=== PATIENT | male | born 1975 | race African-American/Black ===

== ENCOUNTER 2019-02-16 00:18 | Emergency (ER) | payer OTHER ==
[2019-02-16 00:28] VITALS: BMI 27.4
[2019-02-16] MEDS ORDERED: LORazepam 2 MG/ML SDV VIAL ONE (00:40)
--- NOTE | 2019-02-16 00:46 | PDOC ---
History of Present Illness - General Chief Complaint: Seizure Stated Complaint: SEIZURE Time Seen by Provider: 02/16/19 00:36 History Source: Patient - History of Present Illness Initial Comments: 02/16/19 00:52 HPI obtained from [facility] paperwork as well as staff @ [facility] (patient post- ictal @ presentation) The patient is a 43 year old male with a PMH of Seizure disorder, IDDM, HTN, Schizoaffective disorder who presents to our ED s/p seizure. As per [facility] staff, patient was found face down on the ground @ 10:15 p.m. shaking his upper and lower extremities. Witnessed portion of seizure lasted 3-4 minutes Patient alert but not responsive, non-verbal. At baseline, patient A&O x3 however noted to be reticent 2/2 to his underlying schizoaffective disorder. As per [facility] staff, prior to yesterday, patient's last seizure in September 2018. NKDA As per EMR, patient has no previous evaluations in our ED. Patient evaluated for abnormal LFT's as outpatient in 2017. Past History - Past Medical History Allergies/Adverse Reactions: Allergies Allergy/AdvReac Type Severity Reaction Status Date / Time No Known Allergies Allergy Verified 02/16/19 00:22 Home Medications: Ambulatory Orders Acetaminophen [Tylenol] 650 mg PO QID PRN 02/16/19 Amlodipine Besylate [Norvasc -] 10 mg PO DAILY 02/16/19 Dextran 70/Hypromellose [Artificial Tears Eye Drops] 1 drop OP BID 02/16/19 Divalproex Sodium [Depakote] 500 mg PO BID 02/16/19 Enalapril Maleate [Vasotec -] 10 mg PO BID 02/16/19 Ferrous Sulfate [Feosol] 324 mg PO DAILY 02/16/19 Glimepiride [Amaryl -] 4 mg PO DAILY@0700 02/16/19 Insulin (Novolog) [Novolog] 0 units SQ BID 02/16/19 Insulin Detemir [Levemir Flextouch] 10 unit SQ HS 02/16/19 Levetiracetam 750 mg PO Q12H 02/16/19 Metformin HCl [Glucophage] 1,000 mg PO BID 02/16/19 Omeprazole 20 mg PO DAILY 02/16/19 COPD: No Diabetes: Yes Psychiatric Problems: Yes (SCHIZO) Seizures: Yes - Suicide/Smoking/Psychosocial Hx Smoking History: Never smoked Review of Systems - Review of Systems Able to Perform ROS?: No (post ictal) *Physical Exam - Vital Signs Last Vital Signs Temp Pulse Resp BP Pulse Ox 98.5 F 91 H 16 124/74 99 02/16/19 00:23 02/16/19 00:23 02/16/19 00:23 02/16/19 00:02/16/19 00:23 - Physical Exam General Appearance: Yes: Nourished, Appropriately Dressed HEENT: positive: Normal Voice, Hearing Grossly Normal Neck: positive: Trachea midline, Supple Respiratory/Chest: positive: Lungs Clear, Normal Breath Sounds Cardiovascular: positive: S1, S2 Vascular Pulses: Dorsalis-Pedis (R): 2+, Doralis-Pedis (L): 2+ Gastrointestinal/Abdominal: positive: Normal Bowel Sounds, Soft Extremity: positive: Normal Capillary Refill, Normal Inspection Integumentary: positive: Normal Color, Dry, Warm Neurologic: positive: Alert, Other (L index finger tremor - extinguishes w/ command; ). negative: Responsive, Sensory Deficit, Confused ED Treatment Course - LABORATORY CBC & Chemistry Diagram: 02/16/19 01:40 02/16/19 01:40 Medical Decision Making - Medical Decision Making 02/16/19 01:03 43 year old male w/history of previously well controlled seizure disorder presents s/p partially witnessed seizure at his assisted living facility. Post ictal @ presentation, with subsequent seizure (L upper extremity jerking, eyes rolled back in head) s/p 2 mg Ativan As patient post-ictal then seizure in our ED, will evaluate for status epilepticus planned admission. PLAN: Head CT, Valproic Acid, Keppra levels, basic labs, Tylenol for pain control 02/16/19 01:45 Patient signed out to Dr. Edmonds (Resident) and Dr. Wallis (Attending) Labs, Head CT pending Likely disposition is admission for status epilepticus *DC/Admit/Observation/Transfer Diagnosis at time of Disposition: Hyponatremia, Seizure - Discharge Dispostion Disposition: TRANSFER ACUTE CARE/OTHER HOSP - Referrals Referrals: Patrick Edmonds MD [Primary Care Provider] - - Patient Instructions - Post Discharge Activity
[2019-02-16] MEDS ORDERED: ACETAMINOPHEN 1000 MG/100 ML VIAL (NON FORMULARY) IVPB ONE (01:06)
[2019-02-16] MEDS ORDERED: ACETAMINOPHEN INJECTION 100 ML IVPB ONE (01:21)
--- NOTE | 2019-02-16 01:51 | PDOC ---
Documentation entered by Yuki Elizabeth SCRIBE, acting as scribe for Amos Gaxiola MD. Amos Gaxiola MD: This documentation has been prepared by the janieibGlenn smith Collisia, SCRIBE, under my direction and personally reviewed by me in its entirety. I confirm that the documentation accurately reflects all work, treatment, procedures, and medical decision making performed by me. Attending Attestation - Resident Resident Name: ChepeAnabella - ED Attending Attestation I have performed the following: I have examined & evaluated the patient, The case was reviewed & discussed with the resident, I agree w/resident's findings & plan, Exceptions are as noted - HPI HPI: 02/16/19 01:26 The patient is a 43 year old male with a significant past medical history of seizure disorder (on Keppra) and diabetes who presents to the emergency department via EMS from [facility] s/p a seizure episode earlier this evening. As per [facility], the patient was found on the floor in his room seizing at about 10:15 pm by which he was seizing for about 3-4 minute. At bedside, patient has some left upper extremity shaking. History is limited secondary to patients clinical status. - Physicial Exam PE: 02/16/19 01:26 Vitals: Triage vital signs reviewed General Appearance: No acute distress, well nourished, well developed Head: Atraumatic Eyes: Pupils equal reactive round, extraocular movement intact Throat: Posterior oropharynx without erythema, mucous membranes moist Neck: Supple; No nuchal rigidity Chest Wall: Nontender Cardiac: Regular rate and rhythm, no murmurs, no rubs, no gallops Lungs: Clear to auscultation bilateral, good air movement bilaterally Abdomen: Soft, nondistended, normal bowel sounds, nontender to palpation Extremities: Full range of motion to all extremities. no cyanosis, clubbing, or edema Skin: Warm and dry, no rashes or lesions, no rash, no petechiae Neuro: (+)left hand tremor that extinguishes with attempt. Cranial Nerves 2-12 grossly intact, Strength intact to all extremities, Sensation intact to all extremities, - Medical Decision Making 02/16/19 01:26 The patient is a 43 year old male with a significant past medical history of seizure disorder (on Keppra) and diabetes who presents to the emergency department via EMS from [facility] s/p a seizure episode earlier this evening. The patient will get labs drawn, head CT, EKG and medication for further evaluation. Patient presents to the emergency department status post seizure questionable second partial seizure here in the emergency department without complete resolution of symptoms Ativan given now with very mild shaking to left hand which stops with intention Given possibility of multiple [id number] seizures we'll admit the hospital for further evaluation labs CAT scan pending Dr. Wallis follow up results and admit
[2019-02-16 01:59] LABS: HEMOGLOBIN 11.9 GM/dL (11.7-16.9); RDW 13.2 % (11.9-15.9)
[2019-02-16 02:04] LABS: HEMATOCRIT 35.1 % (35.4-49); LYMPH % 25.8 % (8-40); MCH 29.8 pg (25.7-33.7); MCHC 33.9 g/dl (32.0-35.9); MEAN CELL VOLUME 87.9 fl (80-96); MEAN PLT VOLUME 10.6 fl (7.5-11.1); NEUT % 66.2 % (42.8-82.8); RBC 3.99 M/mm3 (4.00-5.60); WHITE BLOOD COUNT 11.7 K/mm3 (4.0-10.0)
[2019-02-16 02:28] LABS: ALBUMIN 3.4 g/dl (3.4-5.0); BILIRUBIN,TOTAL 0.1 mg/dL (0.2-1); BLOOD UREA NITROGEN 7.7 mg/dL (7-18); CALCIUM 8.8 mg/dL (8.5-10.1); CREATININE 1.2 mg/dL (0.55-1.3); TOT PROT 7.1 g/dl (6.4-8.2)
[2019-02-16] MEDS ORDERED: HALOPERIDOL LACTATE 5 MG/ML IM ONE ×2 (02:29→02:30)
[2019-02-16 02:33] LABS: PLATELET COUNT 156 K/MM3 (134-434); PLATELET ESTIMATE ADEQUATE
[2019-02-16 02:43] LABS: POTASSIUM 5.1 mmol/L (3.5-5.1)
[2019-02-16] MEDS ORDERED: SODIUM CHLORIDE 0.9% 500 ML INFUS.BAG IV ONE (02:56)
--- NOTE | 2019-02-16 02:58 | PDOC ---
*Physical Exam - Vital Signs Last Vital Signs Temp Pulse Resp BP Pulse Ox 98.5 F 91 H 16 124/74 99 02/16/19 00:23 02/16/19 00:23 02/16/19 00:23 02/16/19 00:23 02/16/19 00:23 - Physical Exam Comments: 02/16/19 02:56 Pt signed out to me. Pt had a seizure at the [place] and possibly another here in the ER. Labs pending. Head CT result pending. Pt is to be admitted for obs and eval. Here it seems pt has hyponatremia Na+=126 ED Treatment Course - LABORATORY CBC & Chemistry Diagram: 02/16/19 01:40 02/16/19 01:40 - ADDITIONAL ORDERS Additional order review: Laboratory Results 02/16/19 02/16/19 01:40 01:40 Sodium 126 L Potassium 5.1 Chloride 91 L Carbon Dioxide 27 Anion Gap 8 BUN 7.7 Creatinine 1.2 Est GFR (CKD-EPI)AfAm 85.92 Est GFR (CKD-EPI)NonAf 74.14 Random Glucose 237 H Calcium 8.8 Total Bilirubin 0.1 L AST 28 ALT 21 Alkaline Phosphatase 82 Total Protein 7.1 Albumin 3.4 Valproic Acid 81.2 02/16/19 01:40 RBC 3.99 L MCV 87.9 MCHC 33.9 RDW 13.2 MPV 10.6 Neutrophils % 66.2 Lymphocytes % 25.8 Monocytes % 6.0 Eosinophils % 1.0 Basophils % 1.0 - Medications Given in the ED: ED Medications Discontinued Medications Generic Name Dose Route Start Last Admin Trade Name Jannie PRN Reason Stop Dose Admin Acetaminophen 1,000 mg 02/16/19 01:06 02/16/19 02:50 Ofirmev Injection - IVPB 02/16/19 01:07 1,000 mg ONCE ONE Administration Haloperidol 5 mg 02/16/19 02:29 02/16/19 02:49 Haldol Injection (Fast Acting) - IM 02/16/19 02:30 5 mg ONCE ONE Administration Medical Decision Making - Medical Decision Making 02/16/19 03:01 CT head is pending. Pt is aggressive; ran out of the ER, so we had to treat with haldol. 02/16/19 03:41 Patient Name: RUTH ALFREDLEY THIS IS A PRELIMINARY REPORT FROM [facility] DATE OF SERVICE: 2019-02-16 02:50:33 IMAGES: 192 EXAM: HEAD CT WITHOUT CONTRAST HISTORY: Seizure COMPARISON: None. FINDINGS: Status post extensive bilateral frontoparietal craniectomy and cranioplasty. The ventricular system is midline and nondilated. Mild cortical atrophy is noted. There is bifrontal and left occipital encephalomalacia which may be due to old trauma and/or old infarcts.. 7 mm thick bifrontal extra-axial density, which does extend along the falx may represent a subdural hematoma. No intra-axial hemorrhage. There is no mass or mass effect. No skull fracture or skull lesion is identified. The visualized paranasal sinuses and mastoid air cells are clear. IMPRESSION: Suspected 7 mm thick bifrontal subdural hematoma without mass effect or intra-axial hemorrhage. Recommend comparison to any prior exams exclude the possibility of the extra- axial density representing chronic postoperative changes. 02/16/19 06:27 Dr Edwards, our neurosurgeon doesn't want the patient to stay here. Pt will go to [facility], Dr. Ruiz accepted the patient; ER to ER transfer, Dr. Porter is aware of the patient. 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
--- NOTE | 2019-02-16 03:22 | PDOC ---
*Physical Exam - Vital Signs Last Vital Signs Temp Pulse Resp BP Pulse Ox 98.5 F 91 H 16 124/74 99 02/16/19 00:23 02/16/19 00:23 02/16/19 00:23 02/16/19 00:23 02/16/19 00:23 <Carmela Wallis - Last Filed: 02/16/19 03:46> - Vital Signs Last Vital Signs Temp Pulse Resp BP Pulse Ox 98.5 F 91 H 16 124/74 99 02/16/19 00:23 02/16/19 00:23 02/16/19 00:23 02/16/19 00:23 02/16/19 00:23 - Physical Exam General Appearance: Yes: Nourished, Appropriately Dressed Neck: positive: Supple Respiratory/Chest: positive: Lungs Clear, Normal Breath Sounds. negative: Crackles, Rhonchi, Wheezing Cardiovascular: positive: Regular Rhythm, Regular Rate, S1, S2. negative: Edema , JVD, Murmur Gastrointestinal/Abdominal: positive: Normal Bowel Sounds, Soft. negative: Distended, Guarding Extremity: negative: Swelling Neurologic: positive: Alert, Disoriented (Confused and Disoriented, Answering all questions with Yes), Other <Rekha Edmonds - Last Filed: 02/16/19 06:34> ED Treatment Course - LABORATORY CBC & Chemistry Diagram: 02/16/19 01:40 02/16/19 01:40 - ADDITIONAL ORDERS Additional order review: Laboratory Results 02/16/19 02/16/19 01:40 01:40 Sodium 126 L Potassium 5.1 Chloride 91 L Carbon Dioxide 27 Anion Gap 8 BUN 7.7 Creatinine 1.2 Est GFR (CKD-EPI)AfAm 85.92 Est GFR (CKD-EPI)NonAf 74.14 Random Glucose 237 H Calcium 8.8 Total Bilirubin 0.1 L AST 28 ALT 21 Alkaline Phosphatase 82 Total Protein 7.1 Albumin 3.4 Valproic Acid 81.2 02/16/19 01:40 RBC 3.99 L MCV 87.9 MCHC 33.9 RDW 13.2 MPV 10.6 Neutrophils % 66.2 Lymphocytes % 25.8 Monocytes % 6.0 Eosinophils % 1.0 Basophils % 1.0 - Medications Given in the ED: ED Medications Discontinued Medications Generic Name Dose Route Start Last Admin Trade Name Freq PRN Reason Stop Dose Admin Acetaminophen 1,000 mg 02/16/19 01:06 02/16/19 02:50 Ofirmev Injection - IVPB 02/16/19 01:07 1,000 mg ONCE ONE Administration Haloperidol 5 mg 02/16/19 02:29 02/16/19 02:49 Haldol Injection (Fast Acting) - IM 02/16/19 02:30 5 mg ONCE ONE Administration Sodium Chloride 1,000 ml 02/16/19 02:56 02/16/19 03:39 Normal Saline - IV 02/16/19 02:57 1,000 ml ONCE ONE Administration <Carmela Wallis - Last Filed: 02/16/19 03:46> - LABORATORY CBC & Chemistry Diagram: 02/16/19 01:40 02/16/19 01:40 - ADDITIONAL ORDERS Additional order review: Laboratory Results 02/16/19 02/16/19 01:40 01:40 Sodium 126 L Potassium 5.1 Chloride 91 L Carbon Dioxide 27 Anion Gap 8 BUN 7.7 Creatinine 1.2 Est GFR (CKD-EPI)AfAm 85.92 Est GFR (CKD-EPI)NonAf 74.14 Random Glucose 237 H Calcium 8.8 Total Bilirubin 0.1 L AST 28 ALT 21 Alkaline Phosphatase 82 Total Protein 7.1 Albumin 3.4 Valproic Acid 81.2 02/16/19 01:40 RBC 3.99 L MCV 87.9 MCHC 33.9 RDW 13.2 MPV 10.6 Neutrophils % 66.2 Lymphocytes % 25.8 Monocytes % 6.0 Eosinophils % 1.0 Basophils % 1.0 - Medications Given in the ED: ED Medications Discontinued Medications Generic Name Dose Route Start Last Admin Trade Name Freq PRN Reason Stop Dose Admin Acetaminophen 1,000 mg 02/16/19 01:06 02/16/19 02:50 Ofirmev Injection - IVPB 02/16/19 01:07 1,000 mg ONCE ONE Administration Haloperidol 5 mg 02/16/19 02:29 02/16/19 02:49 Haldol Injection (Fast Acting) - IM 02/16/19 02:30 5 mg ONCE ONE Administration <Rekha Edmonds - Last Filed: 02/16/19 06:34> Medical Decision Making - Medical Decision Making 02/16/19 03:46 Patient Name: RUTH DOMINGUEZ THIS IS A PRELIMINARY REPORT FROM [facility] DATE OF SERVICE: 2019-02-16 02:50:33 IMAGES: 192 EXAM: HEAD CT WITHOUT CONTRAST HISTORY: Seizure COMPARISON: None. FINDINGS: Status post extensive bilateral frontoparietal craniectomy and cranioplasty. The ventricular system is midline and nondilated. Mild cortical atrophy is noted. There is bifrontal and left occipital encephalomalacia which may be due to old trauma and/or old infarcts.. 7 mm thick bifrontal extra-axial density, which does extend along the falx may represent a subdural hematoma. No intra-axial hemorrhage. There is no mass or mass effect. No skull fracture or skull lesion is identified. The visualized paranasal sinuses and mastoid air cells are clear. IMPRESSION: Suspected 7 mm thick bifrontal subdural hematoma without mass effect or intra-axial hemorrhage. Recommend comparison to any prior exams exclude the possibility of the extra- axial density representing chronic postoperative changes. <Carmela Wallis - Last Filed: 02/16/19 03:46> - Medical Decision Making 02/16/19 03:13 43 y/o M with PMHx of Seizure disorder (on keppra), IDDM, HTN, Schizoaffective disorder presents to [facility] s/p seizure at [facility]. Patient signed out to me by Dr. Mo. Patient had another seizure here in the ED, was given Ativan, and remained in a post-ictal state since. He then became aggressive and was treated with Haldol. VSS, Remains confused and disoriented. No further seizures at this time. Labwork reveals WBC 11.7 Likely reactive, Na 126, Cl 91, Valproic acid level WNL. Keppra level and EKG pending. Head CT pending read. 02/16/19 03:35 EKG: NSR, VR 81, QTc 408 02/16/19 06:[address] Noted above. Case findings discussed with Dr. Aparicio who suggests transfer for further management Case accepted by Dr. Ruiz at [facility] <Rekha Edmonds - Last Filed: 02/16/19 06:34> *DC/Admit/Observation/Transfer <Carmela Wallis - Last Filed: 02/16/19 03:46> <Rekha Edmonds - Last Filed: 02/16/19 06:34> Diagnosis at time of Disposition: Hyponatremia, Seizure - Referrals Referrals: Patrick Edmonds MD [Primary Care Provider] - - Patient Instructions - Post Discharge Activity
[2019-02-16] MEDS ORDERED: levETIRAcetam 500 MG/5 ML INJECTION VIAL IVPB ONE (06:24)
[2019-02-16 07:13] VITALS: BP 121/81; PULSE 83; TEMP 98.3
--- NOTE | 2019-02-16 13:03 | EKG ---
Test Reason : Blood Pressure : / mmHG Vent. Rate : 081 BPM Atrial Rate : 081 BPM P-R Int : 168 ms QRS Dur : 084 ms QT Int : 352 ms P-R-T Axes : 041 034 025 degrees QTc Int : 408 ms NORMAL SINUS RHYTHM NORMAL ECG NO PREVIOUS ECGS AVAILABLE Confirmed by DAVID BARRY MD ([id number]) on 02/16/2019 1:02:49 PM Referred By: Confirmed By:DAVID BARRY MD
== END 2019-02-16 07:00 | disposition short-term general hospital (02) ==
LOC: JER 00:18
PROC: 3E033NZ Introduction of Analgesics, Hypnotics, Sedatives into Peripheral Vein, Percutaneous Approach (ICD-10-PCS; principal; 2019-02-16)
PROC: 3E033GC Introduction of Other Therapeutic Substance into Peripheral Vein, Percutaneous Approach (ICD-10-PCS; 2019-02-16)
PROC: 3E023GC Introduction of Other Therapeutic Substance into Muscle, Percutaneous Approach (ICD-10-PCS; 2019-02-16)
DX: G40.909 Epilepsy, unspecified, not intractable, without status epilepticus (principal); R56.9 Unspecified convulsions; E87.1 Hypo-osmolality and hyponatremia; I10 Essential (primary) hypertension; E11.9 Type 2 diabetes mellitus without complications; Z79.4 Long term (current) use of insulin; F25.9 Schizoaffective disorder, unspecified
CPT/HCPCS: 36415; 70450-TC; 80053; 80164; 80177; 82962; 85025; 93005; 93010; 96372; 96374; 96375; 99284-25; J0131

== ENCOUNTER 2019-04-15 18:37 | Emergency (ER) | payer OTHER ==
[2019-04-15 18:45] VITALS: BP 126/79; PULSE 71; TEMP 98.1; BMI 27.4
--- NOTE | 2019-04-15 18:50 | PDOC ---
History of Present Illness - General Chief Complaint: Seizure Stated Complaint: SEIZURE Time Seen by Provider: 04/15/19 18:40 History Source: Patient, EMS Exam Limitations: No Limitations - History of Present Illness Initial Comments: 04/15/19 18:44 43 y/o male with known hx of schizophrenia and seizures presents to ER via EMS with a seizure lasting 5 minutes. Patient was given Ativan as per EMS and seizure activity resolved. Denies fever, chills, headache, N/V/d/C. No fall or trauma as per EMS. Tried contacting [facility]. Past History - Past Medical History Allergies/Adverse Reactions: Allergies Allergy/AdvReac Type Severity Reaction Status Date / Time No Known Allergies Allergy Verified 04/15/19 18:42 Home Medications: Ambulatory Orders Amlodipine Besylate [Norvasc -] 10 mg PO DAILY 04/15/19 Benztropine Mesylate 1 mg PO BID 04/15/19 Enalapril Maleate [Vasotec -] 10 mg PO BID 04/15/19 Ferrous Sulfate 324 mg PO DAILY 04/15/19 Glimepiride 4 mg PO DAILY 04/15/19 Haloperidol [Haldol -] 2 mg PO BID 04/15/19 Insulin Aspart [Novolog] unit SQ TID 04/15/19 Insulin Detemir [Levemir Flextouch] 10 unit SQ HS 04/15/19 Metformin HCl [Glucophage] 1,000 mg PO BID 04/15/19 Nicotine Patch [Nicoderm Patch -] 1 patch TD DAILY 04/15/19 Nicotine Polacrilex [Nicorette] 2 mg BC ASDIR 04/15/19 Omeprazole 20 mg PO DAILY 04/15/19 Phenytoin Oral Suspension [Dilantin Oral Suspension 100 MG/4 ML] 100 mg PO TID 04/15/19 COPD: No Diabetes: Yes Psychiatric Problems: Yes (SCHIZO) Seizures: Yes - Suicide/Smoking/Psychosocial Hx Smoking History: Never smoked Review of Systems - Review of Systems Able to Perform ROS?: Yes Is the patient limited Indonesian proficient: No Constitutional: No: Chills, Fever Respiratory: No: Shortness of Breath Cardiac (ROS): No: Chest Pain Musculoskeletal: No: Muscle Pain Neurological: Yes: Seizure. No: Headache All Other Systems: Reviewed and Negative *Physical Exam - Physical Exam General Appearance: Yes: Nourished, Appropriately Dressed. No: Apparent Distress HEENT: positive: EOMI, CECY, Normal ENT Inspection, Normal Voice, Symmetrical, Pharynx Normal (no tongue biting noted) Neck: positive: Trachea midline, Normal Thyroid, Supple (no meningeal signs noted). negative: Tender, Rigid Respiratory/Chest: positive: Lungs Clear, Normal Breath Sounds. negative: Chest Tender, Respiratory Distress Cardiovascular: positive: Regular Rhythm, Regular Rate, S1, S2. negative: Edema , JVD, Murmur Vascular Pulses: Femoral (R): 4+, Femoral (L): 4+, Carotid (R): 4+, Carotid (L) : 4+, Dorsalis-Pedis (R): 4+, Doralis-Pedis (L): 4+ Gastrointestinal/Abdominal: positive: Normal Bowel Sounds, Flat, Soft. negative : Tender, Organomegaly Lymphatic: negative: Adenopathy, Tenderness, Other Musculoskeletal: positive: Normal Inspection. negative: CVA Tenderness Extremity: positive: Normal Capillary Refill, Normal Inspection, Normal Range of Motion. negative: Tender Integumentary: positive: Normal Color, Dry, Warm Neurologic: positive: social director II-XII NML intact, Fully Oriented, Alert, Normal Mood/ Affect, Normal Response, Motor Strength 5/5, Other (tardive dyskensia noted) Deep Tendon Reflexes: Ankle (R): 0 ED Treatment Course - ADDITIONAL ORDERS Additional order review: 04/15/19 18:51 Unable to reach nurse at [facility]. Case to be endorsed to Dr. Cole at 1900 *DC/Admit/Observation/Transfer Diagnosis at time of Disposition: Seizure - Discharge Dispostion Condition at time of disposition: Stable - Referrals - Patient Instructions - Post Discharge Activity
[2019-04-15 19:30] LABS: BASO % 1.4 % (0-2.0); EOS % 1.9 % (0-4.5); HEMATOCRIT 33.3 % (35.4-49); HEMOGLOBIN 11.2 GM/dl (11.7-16.9); LYMPH % 39.8 % (8-40); MCH 30.3 pg (25.7-33.7); MCHC 33.7 g/dl (32.0-35.9); MEAN CELL VOLUME 90.1 fl (80-96); MEAN PLT VOLUME 8.9 fl (7.5-11.1); MONO % 5.9 % (3.8-10.2); PLATELET COUNT 169 K/MM3 (134-434); RBC 3.69 M/mm3 (4.00-5.60); RDW 11.9 % (11.9-15.9); WHITE BLOOD COUNT 7.8 K/mm3 (4.0-10.8)
[2019-04-15 19:36] LABS: BILIRUBIN,TOTAL 0.6 mg/dl (0.2-1); CALCIUM 8.9 mg/dl (8.5-10); CREATININE 1.1 mg/dl (0.55-1.3); POTASSIUM 3.6 mmol/L (3.5-5.1); TOT PROT 7.1 g/dl (6.4-8.2)
--- NOTE | 2019-04-15 19:47 | PDOC ---
*Physical Exam - Vital Signs Last Vital Signs Temp Pulse Resp BP Pulse Ox 98.1 F 71 18 126/79 100 04/15/19 18:37 04/15/19 18:37 04/15/19 18:37 04/15/19 18:37 04/15/19 18:37 ED Treatment Course - LABORATORY CBC & Chemistry Diagram: 04/15/19 19:05 04/15/19 19:05 - ADDITIONAL ORDERS Additional order review: Laboratory Results 04/15/19 04/15/19 04/15/19 19:20 19:05 18:58 Sodium 128 L Potassium 3.6 Chloride 93 L Carbon Dioxide 24 Anion Gap 11 BUN 8.0 Creatinine 1.1 Est GFR (CKD-EPI)AfAm 95.46 Est GFR (CKD-EPI)NonAf 82.36 POC Glucometer 120 Random Glucose 105 Calcium 8.9 Total Bilirubin 0.6 AST 31 ALT 29 Alkaline Phosphatase 73 Total Protein 7.1 Albumin 4.0 Urine Color Yellow Urine Appearance Clear Urine pH 5.5 Urine Protein 2+ H Urine Glucose (UA) Negative Urine Ketones Negative Urine Blood Trace-lysed Urine Nitrite Negative Urine Bilirubin Negative Urine Urobilinogen 0.2 Ur Leukocyte Esterase Negative 04/15/19 04/15/19 19:05 18:58 RBC 3.69 L MCV 90.1 MCHC 33.7 RDW 11.9 MPV 8.9 Neutrophils % 51.0 Lymphocytes % 39.8 Monocytes % 5.9 Eosinophils % 1.9 Basophils % 1.4 POC Glucometer 120 Progress Note - Progress Note Progress Note: Care of this patient was transferred to md from Dr. Lopez at 1900 hrs. Patient is a 43-year-old male with long psych history and no seizure disorder. Patient is on antipsychotics as well as Dilantin. Patient's workup is pending including CBC, comp and went level 19:45 Patient's sodium was slightly low at 128 however and review of prior visits patient's sodium generally is 126-128. Patient's plan level back in January was therapeutic Patient discharged will follow-up with his primary care doctor *DC/Admit/Observation/Transfer Diagnosis at time of Disposition: Seizure - Discharge Dispostion Disposition: HOME Condition at time of disposition: Stable Decision to Admit order: No - Referrals - Patient Instructions Additional Instructions: Your Dilantin level was sent however will not be back for a couple a days as it is a send out. Your last breakthrough seizure you had was back in January and your Dilantin level was therapeutic at that time. Have the staff call the ER in 3-4 days for the Dilantin level and follow it up. Take all your medications as prescribed Return to the emergency department immediately with ANY new, persistent or worsening symptoms. Continue any medications as previously prescribed by your physician. You should follow up with your primary doctor as soon as possible regarding today's emergency department visit. . Please make sure your doctor reviews the results of your emergency evaluation. Thank you for coming to the Emergency Department today for your care. It was a pleasure to see you today. Please note that your evaluation is INCOMPLETE until you follow-up with your doctor. - Post Discharge Activity
[2019-04-15 21:29] LABS: EPITHELIAL CELLS RARE /hpf
== END 2019-04-15 21:23 | disposition home or self-care (01) ==
LOC: FER 18:37
DX: R56.9 Unspecified convulsions (principal); F20.9 Schizophrenia, unspecified; E11.9 Type 2 diabetes mellitus without complications
CPT/HCPCS: 36415; 80053; 80185; 81003; 81015; 82962; 85025; 99282-25

== ENCOUNTER 2020-11-10 18:58 | Inpatient (IN) | payer OTHER ==
[2020-11-10 19:40] VITALS: BMI 21.5
[2020-11-10] MEDS ORDERED: levETIRAcetam 500 MG/5 ML INJECTION VIAL IVPB ONE ×2 (19:48→21:46)
[2020-11-10] MEDS ORDERED: LORazepam 2 MG/ML SDV VIAL IM STA (19:50)
[2020-11-10] MEDS ORDERED: HALOPERIDOL LACTATE 5 MG/ML ONE (19:52)
[2020-11-10] MEDS ORDERED: LORazepam 2 MG/ML SDV VIAL ONE (19:53)
[2020-11-10 20:39] LABS: VENOUS BASE EXCESS -0.8 mmol/L (-2-2); VENOUS O2 SATURATION 77.7 % (70-80); VENOUS PCO2 44.1 mmHg (38-52); VENOUS PH 7.367 (7.310-7.410)
[2020-11-10 20:51] LABS: BASO % 0.4 % (0-2.0); EOS % 1.2 % (0-4.5); HEMATOCRIT 36.7 % (35.4-49); HEMOGLOBIN 11.8 GM/dL (11.7-16.9); LYMPH % 23.8 % (8-40); MCH 29.2 pg (25.7-33.7); MCHC 32.2 g/dl (32.0-35.9); MEAN CELL VOLUME 90.8 fl (80-96); MEAN PLT VOLUME 9.7 fl (7.5-11.1); MONO % 5.9 % (3.8-10.2); NEUT % 68.7 % (42.8-82.8); PLATELET COUNT 173 K/MM3 (134-434); RBC 4.05 M/mm3 (4.00-5.60); RDW 13.2 % (11.9-15.9); WHITE BLOOD COUNT 8.3 K/mm3 (4.0-10.0)
[2020-11-10 20:58] LABS: INR 1.13 (0.83-1.09); PROTHROMBIN TIME (PATIENT) 13.9 SEC (9.7-13.0)
[2020-11-10 21:01] LABS: ACTIVATED PTT 34.8 SECONDS (25.2-36.5)
[2020-11-10 21:06] LABS: CHLORIDE 100 mmol/L (98-107); SODIUM 139 mmol/L (136-145)
[2020-11-10 21:08] LABS: GLUCOSE,RANDOM 302 mg/dL (74-106)
[2020-11-10 21:09] LABS: ALBUMIN 3.4 g/dl (3.4-5.0); ANION GAP 10 MMOL/L (8-16); BLOOD UREA NITROGEN 36.5 mg/dL (7-18); CO2 29 mmol/L (21-32)
[2020-11-10 21:11] LABS: CREATININE 1.7 mg/dL (0.55-1.3)
[2020-11-10 21:12] LABS: SGOT/AST 29 U/L (15-37); SGPT/ALT 38 U/L (13-61)
[2020-11-10 21:13] LABS: BILIRUBIN,TOTAL 0.2 mg/dL (0.2-1); TOT PROT 7.6 g/dl (6.4-8.2)
[2020-11-10 21:14] LABS: ALK PHOS 135 U/L (45-117)
[2020-11-10] MEDS ORDERED: LACTATED RINGERS SOLUTION 1000 ML INFUS.BAG IV STA (21:31)
[2020-11-10 22:38] LABS: EPI CELLS 8 /uL (0-25.1); HYALINE CASTS 3 /uL (0-3.1); URINE APPEARANCE CLEAR; URINE BACTERIA 63 /uL (0-1359); URINE BILIRUBIN NEGATIVE (NEGATIVE); URINE COLOR YELLOW; URINE GLUCOSE (UA) 2+ (NEGATIVE); URINE KETONE TRACE (NEGATIVE); URINE LEUK ESTERASE NEGATIVE (NEGATIVE); URINE NITRITE NEGATIVE (NEGATIVE); URINE PROTEIN 3+ (NEGATIVE); URINE RBC 7 /uL (0-23.9); URINE UROBILINOGEN 0.2 mg/dL (0.2-1.0); URINE WBC 7 /uL (0-25.8)
[2020-11-10] MEDS ORDERED: amLODIPine BESYLATE 10 MG TABLET (FP) PO ONE (23:08)
[2020-11-10] MEDS ORDERED: hydrALAZINE HCL 20 MG/ML VIAL IVPUSH ONE (23:19)
[2020-11-10] MEDS ORDERED: hydrALAZINE HCL 20 MG/ML VIAL ONE (23:29)
[2020-11-11] MEDS ORDERED: LABETALOL HCL 5 MG/1 ML (100MG/20 ML VIAL) IVPUSH ONE (03:30)
[2020-11-11] MEDS: levETIRAcetam 500 MG/5 ML INJECTION VIAL IVPB SCH ×2 (09:00→21:38)
[2020-11-11] MEDS ORDERED: VALPROATE SODIUM 500 MG/5 ML VIAL IVPB SCH ×2 (10:00→22:00)
[2020-11-11] MEDS ORDERED: PT OWN MED DRAWER 7, Y5N ONE ×3 (10:57→21:18)
[2020-11-11] MEDS ORDERED: ACETAMINOPHEN 325 MG TABLET (FP) PO PRN (11:11)
[2020-11-11 11:17] LABS: BASO % 0.5 % (0-2.0); EOS % 3.5 % (0-4.5); HEMATOCRIT 36.8 % (35.4-49); HEMOGLOBIN 12.2 GM/dL (11.7-16.9); MCH 29.3 pg (25.7-33.7); MCHC 33.1 g/dl (32.0-35.9); MEAN CELL VOLUME 88.4 fl (80-96); MEAN PLT VOLUME 8.9 fl (7.5-11.1); MONO % 8.4 % (3.8-10.2); NEUT % 43.6 % (42.8-82.8); PLATELET COUNT 190 K/MM3 (134-434); RBC 4.17 M/mm3 (4.00-5.60); RDW 13.2 % (11.9-15.9); WHITE BLOOD COUNT 9.3 K/mm3 (4.0-10.0)
[2020-11-11 11:38] LABS: POTASSIUM 3.6 mmol/L (3.5-5.1)
[2020-11-11 11:40] LABS: CALCIUM 8.9 mg/dL (8.5-10.1)
[2020-11-11 11:41] LABS: ALBUMIN 2.8 g/dl (3.4-5.0); BLOOD UREA NITROGEN 24.8 mg/dL (7-18); MAGNESIUM 1.8 mg/dL (1.8-2.4)
[2020-11-11 11:44] LABS: CREATININE 1.1 mg/dL (0.55-1.3)
[2020-11-11 11:45] LABS: BILIRUBIN,TOTAL 0.3 mg/dL (0.2-1); TOT PROT 6.8 g/dl (6.4-8.2)
[2020-11-11] MEDS: amLODIPine BESYLATE 10 MG TABLET (FP) PO SCH (12:38)
[2020-11-11] MEDS ORDERED: hydrALAZINE HCL 20 MG/ML VIAL IVPUSH PRN (14:02)
[2020-11-11] MEDS: INSULIN SLIDING SCALE (NOVOLOG) 1 VIAL SQ SCH (17:01)
[2020-11-11] MEDS: CARBIDOPA/LEVODOPA 10/100 TABLET (FP) PO SCH (21:39)
[2020-11-11] MEDS: ROSUVASTATIN CA 5 MG TABLET (FP) PO SCH (21:39)
[2020-11-11] MEDS: BENZTROPINE MESYLATE 1 MG TABLET PO SCH (21:40)
[2020-11-12] MEDS: DIVALPROEX SODIUM 500 MG TABLET E.C. PO SCH ×3 (00:13→21:12)
[2020-11-12] MEDS ORDERED: PT OWN MED DRAWER 7, Y5N ONE ×4 (05:33→20:21)
[2020-11-12] MEDS: INSULIN SLIDING SCALE (NOVOLOG) 1 VIAL SQ SCH ×3 (06:08→17:24)
[2020-11-12] MEDS: amLODIPine BESYLATE 10 MG TABLET (FP) PO SCH (09:24)
[2020-11-12] MEDS: CARBIDOPA/LEVODOPA 10/100 TABLET (FP) PO SCH ×2 (09:24→21:12)
[2020-11-12] MEDS: BENZTROPINE MESYLATE 1 MG TABLET PO SCH ×2 (09:24→21:12)
[2020-11-12] MEDS: levETIRAcetam 500 MG/5 ML INJECTION VIAL IVPB SCH ×2 (09:24→21:11)
[2020-11-12] MEDS: OLANZapine 10 MG TABLET PO SCH (09:25)
[2020-11-12] MEDS: LOSARTAN 50MG/HCTZ 12.5MG 1 TAB PO SCH (11:32)
[2020-11-12] MEDS ORDERED: INSULIN (NOVOLOG) ASPART 100 UNITS/ML 10ML VIAL ONE (17:17)
[2020-11-12] MEDS: MIRTAZAPINE 15 MG TABLET (FP) PO SCH (21:12)
[2020-11-12] MEDS: ROSUVASTATIN CA 5 MG TABLET (FP) PO SCH (21:12)
[2020-11-13] MEDS: amLODIPine BESYLATE 10 MG TABLET (FP) PO SCH ×2 (05:59→09:44)
[2020-11-13] MEDS: INSULIN SLIDING SCALE (NOVOLOG) 1 VIAL SQ SCH ×3 (06:44→16:29)
[2020-11-13] MEDS ORDERED: PT OWN MED DRAWER 7, Y5N ONE ×4 (07:35→21:04)
[2020-11-13] MEDS: OLANZapine 10 MG TABLET PO SCH (09:42)
[2020-11-13] MEDS: LOSARTAN 50MG/HCTZ 12.5MG 1 TAB PO SCH (09:42)
[2020-11-13] MEDS: BENZTROPINE MESYLATE 1 MG TABLET PO SCH ×2 (09:43→22:07)
[2020-11-13] MEDS: CARBIDOPA/LEVODOPA 10/100 TABLET (FP) PO SCH (09:43)
[2020-11-13] MEDS: levETIRAcetam 500 MG/5 ML INJECTION VIAL IVPB SCH ×2 (09:44→22:05)
[2020-11-13] MEDS: DIVALPROEX SODIUM 500 MG TABLET E.C. PO SCH ×2 (09:51→22:06)
[2020-11-13] MEDS: METOPROLOL TARTRATE 25 MG TABLET (FP) PO SCH ×2 (11:28→22:07)
[2020-11-13] MEDS: ROSUVASTATIN CA 5 MG TABLET (FP) PO SCH (22:07)
[2020-11-13] MEDS: MIRTAZAPINE 15 MG TABLET (FP) PO SCH (22:07)
[2020-11-14] MEDS: INSULIN SLIDING SCALE (NOVOLOG) 1 VIAL SQ SCH ×3 (06:07→16:54)
[2020-11-14 08:21] LABS: POTASSIUM 3.4 mmol/L (3.5-5.1)
[2020-11-14 08:25] LABS: CALCIUM 8.3 mg/dL (8.5-10.1)
[2020-11-14 08:26] LABS: BLOOD UREA NITROGEN 15.4 mg/dL (7-18)
[2020-11-14 08:30] LABS: CREATININE 1.2 mg/dL (0.55-1.3)
[2020-11-14] MEDS ORDERED: PT OWN MED DRAWER 7, Y5N ONE ×3 (09:18→21:04)
[2020-11-14] MEDS: amLODIPine BESYLATE 10 MG TABLET (FP) PO SCH (09:51)
[2020-11-14] MEDS: LOSARTAN 50MG/HCTZ 12.5MG 1 TAB PO SCH (09:51)
[2020-11-14] MEDS: BENZTROPINE MESYLATE 1 MG TABLET PO SCH ×2 (09:51→21:06)
[2020-11-14] MEDS: DIVALPROEX SODIUM 500 MG TABLET E.C. PO SCH ×2 (09:51→21:07)
[2020-11-14] MEDS: METOPROLOL TARTRATE 25 MG TABLET (FP) PO SCH ×2 (09:51→21:06)
[2020-11-14] MEDS: OLANZapine 10 MG TABLET PO SCH (09:52)
[2020-11-14] MEDS: levETIRAcetam 500 MG/5 ML INJECTION VIAL IVPB SCH (11:02)
[2020-11-14] MEDS: ROSUVASTATIN CA 5 MG TABLET (FP) PO SCH (21:06)
[2020-11-14] MEDS: MIRTAZAPINE 15 MG TABLET (FP) PO SCH (21:07)
[2020-11-14] MEDS: levETIRAcetam 500 MG TABLET (FP) PO SCH (21:07)
[2020-11-14] MEDS ORDERED: LORazepam 2 MG/ML SDV VIAL ONE (22:40)
[2020-11-14] MEDS ORDERED: LORazepam 2 MG/ML SDV VIAL IVPUSH ONE (22:45)
[2020-11-15] MEDS ORDERED: LORazepam 2 MG/ML SDV VIAL IVPUSH STA (06:10)
[2020-11-15] MEDS: INSULIN SLIDING SCALE (NOVOLOG) 1 VIAL SQ SCH ×2 (06:40→12:48)
[2020-11-15] MEDS ORDERED: PT OWN MED DRAWER 7, Y5N ONE (09:14)
[2020-11-15] MEDS: LOSARTAN 50MG/HCTZ 12.5MG 1 TAB PO SCH (10:51)
[2020-11-15] MEDS: BENZTROPINE MESYLATE 1 MG TABLET PO SCH (10:51)
[2020-11-15] MEDS: amLODIPine BESYLATE 10 MG TABLET (FP) PO SCH (10:51)
[2020-11-15] MEDS: OLANZapine 10 MG TABLET PO SCH (10:51)
[2020-11-15] MEDS: DIVALPROEX SODIUM 500 MG TABLET E.C. PO SCH (10:51)
[2020-11-15] MEDS: METOPROLOL TARTRATE 25 MG TABLET (FP) PO SCH (10:51)
[2020-11-15] MEDS: levETIRAcetam 500 MG TABLET (FP) PO SCH (10:51)
[2020-11-15] MEDS ORDERED: POTASSIUM CHLORIDE ORAL LIQUID 20 MEQ/15 ML PO ONE (11:04)
[2020-11-15] MEDS ORDERED: INSULIN (LEVEMIR) 100 UNITS/ML UNITS SQ ONE (11:28)
[2020-11-15] MEDS ORDERED: INSULIN (NOVOLOG) ASPART 100 UNITS/ML 10ML VIAL ONE ×2 (11:28→13:09)
[2020-11-15 15:44] VITALS: BP 118/70; PULSE 80; TEMP 97.2
== END 2020-11-15 16:47 | DRG 101 ==
LOC: JER 18:58 → JERBED 21:30 → J4W 11-11 03:00
PROVIDERS: ADMIT Internal Medicine; ATTEND Internal Medicine
DX: G40.909 Epilepsy, unspecified, not intractable, without status epilepticus (principal); N17.9 Acute kidney failure, unspecified; F31.9 Bipolar disorder, unspecified; G20 Parkinson's disease; E86.0 Dehydration; F20.9 Schizophrenia, unspecified; I10 Essential (primary) hypertension; G93.89 Other specified disorders of brain; E11.9 Type 2 diabetes mellitus without complications; K21.9 Gastro-esophageal reflux disease without esophagitis; S00.83XA Contusion of other part of head, initial encounter; W19.XXXA Unspecified fall, initial encounter; Y93.89 Activity, other specified; Y92.129 Unspecified place in nursing home as the place of occurrence of the external cause; Y99.8 Other external cause status; Z20.822 Contact with and (suspected) exposure to COVID-19; G56.00 Carpal tunnel syndrome, unspecified upper limb; Z79.84 Long term (current) use of oral hypoglycemic drugs
CPT/HCPCS: 36415; 70450-TC; 71045-TC-FY; 72125-TC; 80048; 80053; 80164; 80177; 80185; 81003; 82803; 82962; 83036; 83735; 84484; 85025; 85610; 85730; 87040; 87077; 87086; 87804; 93005; 93010; 99285-25; C9803; U0003

== ENCOUNTER 2021-07-30 19:03 | Inpatient (IN) | payer OTHER ==
[2021-07-30 19:21] VITALS: BMI 22.1
[2021-07-30] MEDS ORDERED: HALOPERIDOL LACTATE 5 MG/ML IM ONE (20:16)
[2021-07-30] MEDS ORDERED: LORazepam 2 MG/ML SDV VIAL IM ONE (20:16)
[2021-07-30] MEDS ORDERED: HALOPERIDOL LACTATE 5 MG/ML ONE (20:18)
[2021-07-30] MEDS ORDERED: LORazepam 2 MG/ML SDV VIAL ONE (20:19)
[2021-07-30 22:38] LABS: BASO % 0.6 % (0-2.0); EOS % 4.1 % (0-4.5); HEMATOCRIT 39.6 % (35.4-49); HEMOGLOBIN 13.2 GM/dL (11.7-16.9); LYMPH % 37.6 % (8-40); MCH 29.5 pg (25.7-33.7); MCHC 33.4 g/dl (32.0-35.9); MEAN CELL VOLUME 88.1 fl (80-96); MEAN PLT VOLUME 9.1 fl (7.5-11.1); MONO % 9.6 % (3.8-10.2); NEUT % 48.1 % (42.8-82.8); PLATELET COUNT 152 10^3/uL (134-434); RDW 12.3 % (11.9-15.9); WHITE BLOOD COUNT 8.3 K/mm3 (4.0-10.0)
[2021-07-30 22:57] LABS: CHLORIDE 102 mmol/L (98-107); SODIUM 141 mmol/L (136-145)
[2021-07-30 23:00] LABS: ALBUMIN 3.3 g/dl (3.4-5.0); ANION GAP 10 MMOL/L (8-16); CO2 28 mmol/L (21-32); GLUCOSE,RANDOM 249 mg/dL (74-106); MAGNESIUM 1.8 mg/dL (1.8-2.4)
[2021-07-30 23:03] LABS: CREATININE 1.5 mg/dL (0.55-1.3); SGOT/AST 37 U/L (15-37); SGPT/ALT 45 U/L (13-61)
[2021-07-30 23:05] LABS: BILIRUBIN,TOTAL 0.2 mg/dL (0.2-1); TOT PROT 7.5 g/dl (6.4-8.2)
[2021-07-30 23:06] LABS: ALK PHOS 116 U/L (45-117)
[2021-07-30] MEDS ORDERED: SODIUM CHLORIDE 0.9% 500 ML INFUS.BAG IV ONE (23:55)
[2021-07-31 03:05] LABS: EPI CELLS 6 /uL (0-25.1); HYALINE CASTS 0 /uL (0-3.1); PH,URINE 6.5 (5.0-8.0); URINE APPEARANCE Error; URINE BACTERIA 4 /uL (0-1359); URINE BILIRUBIN NEGATIVE (NEGATIVE); URINE COLOR YELLOW; URINE GLUCOSE (UA) TRACE (NEGATIVE); URINE KETONE NEGATIVE (NEGATIVE); URINE LEUK ESTERASE NEGATIVE (NEGATIVE); URINE NITRITE NEGATIVE (NEGATIVE); URINE PROTEIN 3+ (NEGATIVE); URINE RBC 17 /uL (0-23.9); URINE UROBILINOGEN 0.2 mg/dL (0.2-1.0); URINE WBC 4 /uL (0-25.8)
[2021-07-31] MEDS ORDERED: METOPROLOL TARTRATE 5 MG/5 ML VIAL ONE ×3 (05:37→16:12)
[2021-07-31 05:38] LABS: BASO % 0.5 % (0-2.0); EOS % 4.7 % (0-4.5); HEMATOCRIT 41.2 % (35.4-49); HEMOGLOBIN 13.7 GM/dL (11.7-16.9); LYMPH % 42.6 % (8-40); MCHC 33.3 g/dl (32.0-35.9); MEAN PLT VOLUME 9.3 fl (7.5-11.1); MONO % 9.8 % (3.8-10.2); NEUT % 42.4 % (42.8-82.8); PLATELET COUNT 166 10^3/uL (134-434); RBC 4.57 M/mm3 (4.00-5.60); RDW 12.6 % (11.9-15.9); WHITE BLOOD COUNT 8.6 K/mm3 (4.0-10.0)
[2021-07-31 05:56] LABS: CALCIUM 9.3 mg/dL (8.5-10.1)
[2021-07-31 05:57] LABS: ALBUMIN 3.4 g/dl (3.4-5.0); BLOOD UREA NITROGEN 26.9 mg/dL (7-18)
[2021-07-31 06:00] LABS: CREATININE 1.3 mg/dL (0.55-1.3)
[2021-07-31] MEDS: METOPROLOL TARTRATE 5 MG/5 ML VIAL IVPUSH PRN ×3 (06:00→16:19)
[2021-07-31 06:01] LABS: BILIRUBIN,TOTAL 0.2 mg/dL (0.2-1)
[2021-07-31 06:02] LABS: TOT PROT 8.2 g/dl (6.4-8.2)
[2021-07-31] MEDS: HEPARIN NA (PORCINE) 5,000 UNITS/ML 1ML VIAL SQ SCH ×2 (10:00→22:14)
[2021-07-31] MEDS ORDERED: levETIRAcetam 500 MG/5 ML INJECTION VIAL IVPB SCH (10:00)
[2021-07-31] MEDS ORDERED: levETIRAcetam 500 MG TABLET (FP) PO SCH (10:00)
[2021-07-31] MEDS ORDERED: HEPARIN NA (PORCINE) 5,000 UNITS/ML 1ML VIAL ONE ×2 (11:18→22:08)
[2021-07-31] MEDS: LOSARTAN POTASSIUM 50 MG TABLET PO SCH (11:27)
[2021-07-31] MEDS: METOPROLOL TARTRATE 25 MG TABLET (FP) PO SCH ×2 (11:28→22:15)
[2021-07-31] MEDS: OLANZapine 10 MG TABLET PO SCH (11:28)
[2021-07-31] MEDS: DIVALPROEX SODIUM 500 MG TABLET E.C. PO SCH (11:28)
[2021-07-31] MEDS ORDERED: hydrALAZINE HCL 20 MG/ML VIAL IVPUSH PRN ×2 (17:21→17:32)
[2021-07-31] MEDS ORDERED: DIVALPROEX SODIUM 500 MG TABLET E.C. PO SCH (22:00)
[2021-07-31] MEDS ORDERED: MELATONIN 5 MG TABLETS ONE (22:08)
[2021-07-31] MEDS ORDERED: levETIRAcetam 500 MG TABLET (FP) PO ONE (22:08)
[2021-07-31] MEDS ORDERED: METOPROLOL TARTRATE 25 MG TABLET (FP) ONE (22:08)
[2021-07-31] MEDS: MELATONIN 5 MG TABLETS PO SCH (22:15)
[2021-07-31] MEDS: levETIRAcetam 500 MG TABLET (FP) PO SCH (22:15)
[2021-07-31] MEDS: ROSUVASTATIN CA 5 MG TABLET (FP) PO SCH (22:48)
[2021-08-01] MEDS ORDERED: METOPROLOL TARTRATE 5 MG/5 ML VIAL ONE (00:41)
[2021-08-01] MEDS: METOPROLOL TARTRATE 5 MG/5 ML VIAL IVPUSH PRN (00:46)
[2021-08-01] MEDS ORDERED: DIVALPROEX SODIUM 500 MG TABLET E.C. ONE (08:56)
[2021-08-01] MEDS ORDERED: METOPROLOL TARTRATE 25 MG TABLET (FP) ONE (08:56)
[2021-08-01] MEDS ORDERED: OLANZapine 10 MG TABLET ONE (08:56)
[2021-08-01] MEDS ORDERED: levETIRAcetam 500 MG TABLET (FP) PO ONE (08:56)
[2021-08-01] MEDS ORDERED: HEPARIN NA (PORCINE) 5,000 UNITS/ML 1ML VIAL ONE (08:57)
[2021-08-01] MEDS ORDERED: LOSARTAN POTASSIUM 50 MG TABLET ONE (08:57)
[2021-08-01] MEDS ORDERED: amLODIPine BESYLATE 5 MG TABLET (FP) ONE (11:20)
[2021-08-01 12:10] LABS: CALCIUM 9.1 mg/dL (8.5-10.1)
[2021-08-01 12:11] LABS: BLOOD UREA NITROGEN 21.8 mg/dL (7-18)
[2021-08-01 12:14] LABS: CREATININE 1.4 mg/dL (0.55-1.3)
[2021-08-01 12:16] LABS: BILIRUBIN,TOTAL 0.2 mg/dL (0.2-1); TOT PROT 7.6 g/dl (6.4-8.2)
[2021-08-01] MEDS: METOPROLOL TARTRATE 25 MG TABLET (FP) PO SCH ×2 (13:00→22:13)
[2021-08-01] MEDS: DIVALPROEX SODIUM 500 MG TABLET E.C. PO SCH (13:00)
[2021-08-01] MEDS: OLANZapine 10 MG TABLET PO SCH (13:00)
[2021-08-01] MEDS: amLODIPine BESYLATE 10 MG TABLET (FP) PO SCH (13:00)
[2021-08-01] MEDS: LOSARTAN POTASSIUM 50 MG TABLET PO SCH (13:00)
[2021-08-01] MEDS: levETIRAcetam 500 MG TABLET (FP) PO SCH (14:00)
[2021-08-01] MEDS: HEPARIN NA (PORCINE) 5,000 UNITS/ML 1ML VIAL SQ SCH ×2 (14:07→22:12)
[2021-08-01] MEDS: ROSUVASTATIN CA 5 MG TABLET (FP) PO SCH (22:12)
[2021-08-01] MEDS: MELATONIN 5 MG TABLETS PO SCH (22:12)
[2021-08-01] MEDS: levETIRAcetam 500 MG/5 ML ORAL SOLUTION (UNIT-DOSE CUPS) PO SCH (22:13)
[2021-08-02] MEDS ORDERED: PT OWN MED DRAWER 7, Y5N ONE ×2 (00:08→10:05)
[2021-08-02] MEDS: METOPROLOL TARTRATE 25 MG TABLET (FP) PO SCH (10:08)
[2021-08-02] MEDS: DIVALPROEX SODIUM 500 MG TABLET E.C. PO SCH (10:08)
[2021-08-02] MEDS: amLODIPine BESYLATE 10 MG TABLET (FP) PO SCH (10:08)
[2021-08-02] MEDS: LOSARTAN POTASSIUM 50 MG TABLET PO SCH (10:08)
[2021-08-02] MEDS: HEPARIN NA (PORCINE) 5,000 UNITS/ML 1ML VIAL SQ SCH (10:09)
[2021-08-02] MEDS: levETIRAcetam 500 MG/5 ML ORAL SOLUTION (UNIT-DOSE CUPS) PO SCH (10:09)
[2021-08-02] MEDS: OLANZapine 10 MG TABLET PO SCH (11:29)
[2021-08-02 15:13] VITALS: BP 120/97; PULSE 88; TEMP 98.9
[2021-08-03] MEDS ORDERED: LOSARTAN POTASSIUM 50 MG TABLET PO SCH (10:00)
== END 2021-08-02 17:46 | DRG 917 ==
LOC: JER 19:03 → JERBED 20:26 → J4W 08-01 20:44
PROVIDERS: ADMIT Internal Medicine; ATTEND Internal Medicine
DX: T42.0X1A Poisoning by hydantoin derivatives, accidental (unintentional), initial encounter (principal); G93.41 Metabolic encephalopathy; G92.9 Unspecified toxic encephalopathy; N17.9 Acute kidney failure, unspecified; Y92.89 Other specified places as the place of occurrence of the external cause; G20 Parkinson's disease; R29.6 Repeated falls; I10 Essential (primary) hypertension; F20.9 Schizophrenia, unspecified; E11.9 Type 2 diabetes mellitus without complications
CPT/HCPCS: 36415; 70450-TC; 71045-TC-FY; 72125-TC; 80053; 80164; 80177; 80185; 81003; 82550; 82553; 82962; 83036; 83735; 84484; 85025; 87086; 93005; 93010; 93306-TC; 97116-GP; 97162-GP; 99285-25; C9803; J1644; U0003; U0005

== ENCOUNTER 2022-06-22 21:48 | Inpatient (IN) | payer OTHER ==
[2022-06-22] MEDS ORDERED: ACETAMINOPHEN 500 MG TABLET (FP) PO ONE (22:53)
[2022-06-22] MEDS ORDERED: ONDANSETRON 4 MG TABLET PO ONE (22:59)
[2022-06-22] MEDS ORDERED: ACETAMINOPHEN 325 MG TABLET (FP) ONE (23:18)
[2022-06-22] MEDS ORDERED: ONDANSETRON *ODT* 4 MG TABLET ONE (23:18)
[2022-06-22 23:22] LABS: BASO % 0.9 % (0-2.0); EOS % 0.4 % (0-4.5); HEMATOCRIT 40.2 % (35.4-49); HEMOGLOBIN 13.1 GM/dL (11.7-16.9); LYMPH % 25.9 % (8-40); MCHC 32.7 g/dl (32.0-35.9); MEAN CELL VOLUME 88.7 fl (80-96); MONO % 9.6 % (3.8-10.2); NEUT % 63.2 % (42.8-82.8); PLATELET COUNT 103 10^3/uL (134-434); RBC 4.53 M/mm3 (4.00-5.60); RDW 13.8 % (11.9-15.9); VENOUS BASE EXCESS 2.1 mmol/L (-2-2); VENOUS O2 SATURATION 91.4 % (70-80); VENOUS PCO2 43.1 mmHg (38-52); VENOUS PH 7.415 (7.310-7.410)
[2022-06-22 23:29] LABS: INR 1.08 (0.83-1.09); PROTHROMBIN TIME (PATIENT) 12.4 SEC (9.7-13.0)
[2022-06-22 23:37] LABS: ACTIVATED PTT 36.7 SECONDS (25.2-36.5)
[2022-06-22 23:48] LABS: ALBUMIN 3.3 g/dl (3.4-5.0); BLOOD UREA NITROGEN 27.4 mg/dL (7-18); CALCIUM 9.4 mg/dL (8.5-10.1)
[2022-06-22 23:51] LABS: CREATININE 2.6 mg/dL (0.55-1.3)
[2022-06-22 23:53] LABS: BILIRUBIN,TOTAL 0.3 mg/dL (0.2-1); TOT PROT 8.2 g/dl (6.4-8.2)
[2022-06-23] MEDS ORDERED: HALOPERIDOL LACTATE 5 MG/ML IM ONE ×2 (00:16→00:29)
[2022-06-23] MEDS ORDERED: SODIUM CHLORIDE 0.9% 1000 ML INFUS.BAG IV ONE (00:18)
[2022-06-23] MEDS ORDERED: SODIUM CHLORIDE 1,000 ML IV SCH (02:15)
[2022-06-23] MEDS ORDERED: ACETAMINOPHEN 325 MG TABLET (FP) PO PRN (05:41)
[2022-06-23] MEDS ORDERED: glipiZIDE 5 MG TABLET (FP) ONE (06:49)
[2022-06-23] MEDS: INSULIN SLIDING SCALE (NOVOLOG) 1 VIAL SQ SCH ×4 (07:00→23:07)
[2022-06-23] MEDS: glipiZIDE 10 MG TABLET (FP) PO SCH (07:00)
[2022-06-23 07:26] LABS: CALCIUM 8.4 mg/dL (8.5-10.1)
[2022-06-23 07:27] LABS: ALBUMIN 2.7 g/dl (3.4-5.0); BLOOD UREA NITROGEN 31.8 mg/dL (7-18)
[2022-06-23 07:30] LABS: CREATININE 2.8 mg/dL (0.55-1.3)
[2022-06-23 07:32] LABS: BILIRUBIN,TOTAL 0.3 mg/dL (0.2-1); TOT PROT 6.6 g/dl (6.4-8.2)
[2022-06-23 08:04] LABS: BASO % 0.3 % (0-2.0); EOS % 0.5 % (0-4.5); HEMATOCRIT 35.4 % (35.4-49); HEMOGLOBIN 11.4 GM/dL (11.7-16.9); LYMPH % 35.3 % (8-40); MCH 28.9 pg (25.7-33.7); MCHC 32.2 g/dl (32.0-35.9); MEAN CELL VOLUME 89.9 fl (80-96); MEAN PLT VOLUME 9.2 fl (7.5-11.1); MONO % 9.4 % (3.8-10.2); NEUT % 54.5 % (42.8-82.8); PLATELET COUNT 92 10^3/uL (134-434); RBC 3.93 M/mm3 (4.00-5.60); RDW 13.8 % (11.9-15.9); WHITE BLOOD COUNT 12.3 K/mm3 (4.0-10.0)
[2022-06-23] MEDS ORDERED: LOSARTAN POTASSIUM 50 MG TABLET ONE (09:01)
[2022-06-23] MEDS ORDERED: amLODIPine BESYLATE 5 MG TABLET (FP) ONE (09:01)
[2022-06-23] MEDS ORDERED: PANTOPRAZOLE SODIUM 40 MG VIAL ONE (09:01)
[2022-06-23 09:38] LABS: URINE APPEARANCE CLEAR; URINE BILIRUBIN NEGATIVE (NEGATIVE); URINE COLOR YELLOW; URINE GLUCOSE (UA) 2+ (NEGATIVE); URINE KETONE NEGATIVE (NEGATIVE); URINE LEUK ESTERASE NEGATIVE (NEGATIVE); URINE NITRITE NEGATIVE (NEGATIVE); URINE PROTEIN 1+ (NEGATIVE); URINE UROBILINOGEN 0.2 mg/dL (0.2-1.0)
[2022-06-23 09:41] LABS: URINE RBC 13 /uL (0-23.9); URINE WBC 1 /uL (0-25.8)
[2022-06-23 09:42] LABS: EPI CELLS 0.2 /uL (0-25.1); HYALINE CASTS 0 /uL (0-3.1); URINE BACTERIA 6 /uL (0-1359)
[2022-06-23] MEDS ORDERED: DIVALPROEX SODIUM 500 MG TABLET E.C. ONE (09:49)
[2022-06-23] MEDS ORDERED: METOPROLOL TARTRATE 25 MG TABLET (FP) ONE (09:49)
[2022-06-23] MEDS: levETIRAcetam 250 MG TABLET PO SCH ×2 (09:55→22:59)
[2022-06-23] MEDS: ARTIFICIAL TEARS (POLYVINYL ALCOHOL) OPTH DROPS OU SCH (09:55)
[2022-06-23] MEDS: DIVALPROEX SODIUM 500 MG TABLET E.C. PO SCH (09:55)
[2022-06-23] MEDS: LACOSAMIDE 50 MG TABLET PO SCH ×2 (09:55→22:59)
[2022-06-23] MEDS: METOPROLOL TARTRATE 25 MG TABLET (FP) PO SCH (09:55)
[2022-06-23] MEDS: amLODIPine BESYLATE 10 MG TABLET (FP) PO SCH (09:55)
[2022-06-23] MEDS: QUEtiapine FUMARATE 25 MG TABLET PO SCH (09:55)
[2022-06-23] MEDS ORDERED: levETIRAcetam 500 MG TABLET (FP) PO SCH (10:00)
[2022-06-23] MEDS ORDERED: LOSARTAN POTASSIUM 50 MG TABLET PO SCH (10:00)
[2022-06-23] MEDS: SODIUM CHLORIDE 1,000 ML IV SCH (17:16)
[2022-06-23] MEDS ORDERED: MIRTAZAPINE 30 MG TABLET PO SCH (22:00)
[2022-06-23] MEDS ORDERED: MIRTAZAPINE 15 MG TABLET (FP) ONE (22:57)
[2022-06-23] MEDS: MELATONIN 5 MG TABLETS PO SCH (22:59)
[2022-06-23] MEDS: ROSUVASTATIN CA 5 MG TABLET PO SCH (22:59)
[2022-06-23] MEDS: OLANZapine 10 MG TABLET PO SCH (22:59)
[2022-06-23] MEDS: MIRTAZAPINE 15 MG TABLET (FP) PO SCH (23:07)
[2022-06-24] MEDS: ARTIFICIAL TEARS (POLYVINYL ALCOHOL) OPTH DROPS OU SCH ×3 (01:25→22:07)
[2022-06-24] MEDS: DIVALPROEX SODIUM 500 MG TABLET E.C. PO SCH ×3 (01:25→22:03)
[2022-06-24 03:10] VITALS: BMI 24.0
[2022-06-24] MEDS ORDERED: glipiZIDE 5 MG TABLET (FP) ONE (06:37)
[2022-06-24] MEDS: INSULIN SLIDING SCALE (NOVOLOG) 1 VIAL SQ SCH ×4 (06:48→22:04)
[2022-06-24] MEDS: glipiZIDE 10 MG TABLET (FP) PO SCH (07:10)
[2022-06-24 09:56] LABS: BASO % 0.4 % (0-2.0); EOS % 2.2 % (0-4.5); HEMATOCRIT 33.7 % (35.4-49); LYMPH % 51.4 % (8-40); MCH 29.1 pg (25.7-33.7); MCHC 32.6 g/dl (32.0-35.9); MEAN CELL VOLUME 89.3 fl (80-96); MEAN PLT VOLUME 8.4 fl (7.5-11.1); MONO % 7.8 % (3.8-10.2); NEUT % 38.2 % (42.8-82.8); PLATELET COUNT 81 10^3/uL (134-434); RBC 3.78 M/mm3 (4.00-5.60); WHITE BLOOD COUNT 8.4 K/mm3 (4.0-10.0)
[2022-06-24] MEDS: QUEtiapine FUMARATE 25 MG TABLET PO SCH (10:07)
[2022-06-24] MEDS: amLODIPine BESYLATE 10 MG TABLET (FP) PO SCH (10:07)
[2022-06-24] MEDS: METOPROLOL TARTRATE 25 MG TABLET (FP) PO SCH (10:08)
[2022-06-24] MEDS: LACOSAMIDE 50 MG TABLET PO SCH ×2 (10:08→22:03)
[2022-06-24] MEDS: levETIRAcetam 250 MG TABLET PO SCH ×2 (10:08→22:03)
[2022-06-24 10:16] LABS: CALCIUM 8.5 mg/dL (8.5-10.1)
[2022-06-24 10:17] LABS: ALBUMIN 2.7 g/dl (3.4-5.0); BLOOD UREA NITROGEN 25.6 mg/dL (7-18); MAGNESIUM 1.8 mg/dL (1.8-2.4)
[2022-06-24 10:20] LABS: CREATININE 2.2 mg/dL (0.55-1.3); PHOSPHOROUS 4.5 mg/dL (2.5-4.9)
[2022-06-24 10:21] LABS: BILIRUBIN,TOTAL 0.2 mg/dL (0.2-1); TOT PROT 6.7 g/dl (6.4-8.2)
[2022-06-24] MEDS: SODIUM CHLORIDE 1,000 ML IV SCH (13:38)
[2022-06-24] MEDS ORDERED: INSULIN (NOVOLOG) ASPART 100 UNITS/ML 10ML VIAL ONE ×2 (17:49→21:59)
[2022-06-24] MEDS: MELATONIN 5 MG TABLETS PO SCH (22:03)
[2022-06-24] MEDS: OLANZapine 10 MG TABLET PO SCH (22:03)
[2022-06-24] MEDS: ROSUVASTATIN CA 5 MG TABLET PO SCH (22:03)
[2022-06-24] MEDS: MIRTAZAPINE 15 MG TABLET (FP) PO SCH (22:03)
[2022-06-24] MEDS: INSULIN (LEVEMIR) 100 UNITS/ML UNITS SQ SCH (22:05)
[2022-06-25] MEDS: INSULIN (LEVEMIR) 100 UNITS/ML UNITS SQ SCH ×2 (06:19→14:37)
[2022-06-25] MEDS: INSULIN SLIDING SCALE (NOVOLOG) 1 VIAL SQ SCH ×5 (06:19→21:16)
[2022-06-25] MEDS: DIVALPROEX SODIUM 500 MG TABLET E.C. PO SCH ×2 (09:59→21:38)
[2022-06-25] MEDS: ARTIFICIAL TEARS (POLYVINYL ALCOHOL) OPTH DROPS OU SCH ×2 (10:01→21:15)
[2022-06-25] MEDS: levETIRAcetam 250 MG TABLET PO SCH ×2 (10:04→21:05)
[2022-06-25] MEDS: QUEtiapine FUMARATE 25 MG TABLET PO SCH (10:04)
[2022-06-25] MEDS: METOPROLOL TARTRATE 25 MG TABLET (FP) PO SCH (10:05)
[2022-06-25] MEDS: amLODIPine BESYLATE 10 MG TABLET (FP) PO SCH (10:05)
[2022-06-25] MEDS: LACOSAMIDE 50 MG TABLET PO SCH ×2 (10:05→21:05)
[2022-06-25 10:21] LABS: BASO % 0.4 % (0-2.0); EOS % 2.3 % (0-4.5); HEMATOCRIT 35.6 % (35.4-49); HEMOGLOBIN 11.4 GM/dL (11.7-16.9); LYMPH % 54.6 % (8-40); MCH 28.7 pg (25.7-33.7); MEAN CELL VOLUME 89.8 fl (80-96); MEAN PLT VOLUME 8.9 fl (7.5-11.1); MONO % 7.6 % (3.8-10.2); NEUT % 35.1 % (42.8-82.8); PLATELET COUNT 80 10^3/uL (134-434); RBC 3.97 M/mm3 (4.00-5.60); RDW 13.9 % (11.9-15.9)
[2022-06-25 10:25] LABS: BLOOD UREA NITROGEN 31.3 mg/dL (7-18); CALCIUM 8.8 mg/dL (8.5-10.1)
[2022-06-25 10:28] LABS: CREATININE 2.1 mg/dL (0.55-1.3)
[2022-06-25] MEDS: SODIUM CHLORIDE 1,000 ML IV SCH (14:35)
[2022-06-25] MEDS: MELATONIN 5 MG TABLETS PO SCH (21:05)
[2022-06-25] MEDS: OLANZapine 10 MG TABLET PO SCH (21:05)
[2022-06-25] MEDS: MIRTAZAPINE 15 MG TABLET (FP) PO SCH (21:05)
[2022-06-25] MEDS: ROSUVASTATIN CA 5 MG TABLET PO SCH (21:05)
[2022-06-25] MEDS ORDERED: INSULIN (NOVOLOG) ASPART 100 UNITS/ML 10ML VIAL ONE (21:08)
[2022-06-26] MEDS: INSULIN SLIDING SCALE (NOVOLOG) 1 VIAL SQ SCH ×4 (06:30→21:08)
[2022-06-26] MEDS: INSULIN (LEVEMIR) 100 UNITS/ML UNITS SQ SCH (11:56)
[2022-06-26] MEDS: amLODIPine BESYLATE 10 MG TABLET (FP) PO SCH (11:56)
[2022-06-26] MEDS: QUEtiapine FUMARATE 25 MG TABLET PO SCH (11:56)
[2022-06-26] MEDS: METOPROLOL TARTRATE 25 MG TABLET (FP) PO SCH (11:56)
[2022-06-26] MEDS: levETIRAcetam 250 MG TABLET PO SCH ×2 (11:56→21:03)
[2022-06-26] MEDS: LACOSAMIDE 50 MG TABLET PO SCH ×2 (11:57→21:04)
[2022-06-26] MEDS: DIVALPROEX SODIUM 500 MG TABLET E.C. PO SCH ×2 (11:57→21:03)
[2022-06-26] MEDS: ARTIFICIAL TEARS (POLYVINYL ALCOHOL) OPTH DROPS OU SCH ×2 (11:59→21:02)
[2022-06-26 12:09] LABS: HEMATOCRIT 35.2 % (35.4-49); HEMOGLOBIN 11.4 GM/dL (11.7-16.9); MCH 28.9 pg (25.7-33.7); MCHC 32.4 g/dl (32.0-35.9); MEAN CELL VOLUME 89.2 fl (80-96); MEAN PLT VOLUME 8.3 fl (7.5-11.1); PLATELET COUNT 82 10^3/uL (134-434); RBC 3.95 M/mm3 (4.00-5.60); RDW 13.6 % (11.9-15.9); WHITE BLOOD COUNT 5.5 K/mm3 (4.0-10.0)
[2022-06-26 12:26] LABS: CALCIUM 8.9 mg/dL (8.5-10.1)
[2022-06-26 12:27] LABS: BLOOD UREA NITROGEN 33.2 mg/dL (7-18)
[2022-06-26 12:30] LABS: CREATININE 2.2 mg/dL (0.55-1.3)
[2022-06-26] MEDS: SODIUM CHLORIDE 1,000 ML IV SCH (14:40)
[2022-06-26] MEDS: MELATONIN 5 MG TABLETS PO SCH (21:03)
[2022-06-26] MEDS: OLANZapine 10 MG TABLET PO SCH (21:04)
[2022-06-26] MEDS: ROSUVASTATIN CA 5 MG TABLET PO SCH (21:04)
[2022-06-26] MEDS: MIRTAZAPINE 15 MG TABLET (FP) PO SCH (21:05)
[2022-06-27] MEDS: INSULIN SLIDING SCALE (NOVOLOG) 1 VIAL SQ SCH ×4 (06:26→21:02)
[2022-06-27] MEDS: QUEtiapine FUMARATE 25 MG TABLET PO SCH (11:34)
[2022-06-27] MEDS: levETIRAcetam 250 MG TABLET PO SCH ×2 (11:34→21:02)
[2022-06-27] MEDS: LACOSAMIDE 50 MG TABLET PO SCH ×2 (11:34→21:02)
[2022-06-27] MEDS: METOPROLOL TARTRATE 25 MG TABLET (FP) PO SCH (11:34)
[2022-06-27] MEDS: amLODIPine BESYLATE 10 MG TABLET (FP) PO SCH (11:34)
[2022-06-27] MEDS: SODIUM CHLORIDE 1,000 ML IV SCH (11:39)
[2022-06-27] MEDS: INSULIN (LEVEMIR) 100 UNITS/ML UNITS SQ SCH (11:43)
[2022-06-27] MEDS: DIVALPROEX SODIUM 500 MG TABLET E.C. PO SCH ×2 (11:57→21:04)
[2022-06-27] MEDS: ARTIFICIAL TEARS (POLYVINYL ALCOHOL) OPTH DROPS OU SCH ×2 (11:58→21:05)
[2022-06-27] MEDS: OLANZapine 10 MG TABLET PO SCH (21:02)
[2022-06-27] MEDS: ROSUVASTATIN CA 5 MG TABLET PO SCH (21:03)
[2022-06-27] MEDS: MELATONIN 5 MG TABLETS PO SCH (21:05)
[2022-06-28] MEDS ORDERED: INSULIN (NOVOLOG) ASPART 100 UNITS/ML 10ML VIAL ONE ×2 (06:24→11:16)
[2022-06-28] MEDS: INSULIN SLIDING SCALE (NOVOLOG) 1 VIAL SQ SCH ×2 (06:59→11:18)
[2022-06-28 09:04] VITALS: BP 103/58; PULSE 61; RESP 18; TEMP 98.6
[2022-06-28] MEDS: amLODIPine BESYLATE 10 MG TABLET (FP) PO SCH (09:50)
[2022-06-28] MEDS: METOPROLOL TARTRATE 25 MG TABLET (FP) PO SCH (09:50)
[2022-06-28] MEDS: levETIRAcetam 250 MG TABLET PO SCH (09:50)
[2022-06-28] MEDS: DIVALPROEX SODIUM 500 MG TABLET E.C. PO SCH (09:51)
[2022-06-28] MEDS: LACOSAMIDE 50 MG TABLET PO SCH (09:51)
[2022-06-28] MEDS: ARTIFICIAL TEARS (POLYVINYL ALCOHOL) OPTH DROPS OU SCH (09:53)
[2022-06-28] MEDS: INSULIN (LEVEMIR) 100 UNITS/ML UNITS SQ SCH (10:00)
== END 2022-06-28 15:58 | DRG 684 ==
LOC: JER 21:48 → JERBED 06-23 00:48 → OBSVTOIN 06-23 17:04 → J6S 06-23 21:48
PROVIDERS: ADMIT Internal Medicine; ATTEND Internal Medicine
DX: N17.0 Acute kidney failure with tubular necrosis (principal); I10 Essential (primary) hypertension; E78.5 Hyperlipidemia, unspecified; E11.9 Type 2 diabetes mellitus without complications; K21.9 Gastro-esophageal reflux disease without esophagitis; D64.9 Anemia, unspecified; G40.909 Epilepsy, unspecified, not intractable, without status epilepticus; G20 Parkinson's disease; F20.9 Schizophrenia, unspecified; F31.9 Bipolar disorder, unspecified; R50.9 Fever, unspecified; D69.6 Thrombocytopenia, unspecified; R11.2 Nausea with vomiting, unspecified; N28.1 Cyst of kidney, acquired; R31.9 Hematuria, unspecified; E87.5 Hyperkalemia; D72.829 Elevated white blood cell count, unspecified; E86.0 Dehydration; Z89.421 Acquired absence of other right toe(s)
CPT/HCPCS: 0241U-QW; 36415; 71045-TC-FY; 76775-TC; 76856-TC; 80048; 80053; 80164; 80177; 81003; 82803; 82962; 83605; 83735; 84100; 84484; 85025; 85027; 85610; 85730; 87040; 87086; 93005; 93010; 99285-25; C9803-CS; G0378; U0003; U0005

== ENCOUNTER 2023-09-09 01:49 | Inpatient (IN) | payer OTHER ==
[2023-09-09 02:00] VITALS: BMI 26.6
[2023-09-09 03:39] LABS: BASO % 0.2 % (0-2.0); HEMATOCRIT 33.6 % (35.4-49); HEMOGLOBIN 10.8 GM/dL (11.7-16.9); LYMPH % 47.2 % (8-40); MCHC 32.1 g/dl (32.0-35.9); MEAN CELL VOLUME 87.2 fl (80-96); MEAN PLT VOLUME 8.1 fl (7.5-11.1); MONO % 12.6 % (3.8-10.2); PLATELET COUNT 141 10^3/uL (134-434); RBC 3.85 M/mm3 (4.00-5.60); RDW 13.9 % (11.9-15.9); WHITE BLOOD COUNT 5.6 K/mm3 (4.0-10.0)
[2023-09-09 03:46] LABS: INR 0.97 (0.83-1.09); PROTHROMBIN TIME (PATIENT) 11.2 SEC (9.7-13.0)
[2023-09-09 03:48] LABS: ACTIVATED PTT 37.6 SECONDS (25.2-36.5)
[2023-09-09 03:59] LABS: CHLORIDE 104 mmol/L (98-107); SODIUM 139 mmol/L (136-145)
[2023-09-09 04:02] LABS: CALCIUM 9.5 mg/dL (8.5-10.1)
[2023-09-09 04:03] LABS: BLOOD UREA NITROGEN 68.2 mg/dL (7-18); CO2 31 mmol/L (21-32); GLUCOSE,RANDOM 303 mg/dL (74-106)
[2023-09-09 04:06] LABS: CREATININE 3.4 mg/dL (0.55-1.3); SGOT/AST 12 U/L (15-37); SGPT/ALT 13 U/L (13-61)
[2023-09-09 04:07] LABS: BILIRUBIN,TOTAL 0.2 mg/dL (0.2-1); TOT PROT 8.1 g/dl (6.4-8.2)
[2023-09-09 04:09] LABS: ALK PHOS 98 U/L (45-117)
[2023-09-09 04:18] LABS: ANION GAP 3 mmol/L (4-13); POTASSIUM 6.1 mmol/L (3.5-5.1)
[2023-09-09] MEDS ORDERED: INSULIN REGULAR HUMAN 100 UNITS/ML *VIAL IVPUSH ONE (05:05)
[2023-09-09] MEDS ORDERED: CALCIUM CHLORIDE 10% 1 GM/10 ML *VIAL IVPB ONE (05:06)
[2023-09-09] MEDS ORDERED: CALCIUM GLUC IN NACL, ISO-OSM 1 GM/50 ML BAG IVPB ONE (05:08)
[2023-09-09] MEDS ORDERED: SODIUM ZIRCONIUM CYCLOSILICATE (LOKELMA) 10 GM PACKET ONE (10:31)
[2023-09-09] MEDS: SODIUM ZIRCONIUM CYCLOSILICATE (LOKELMA) 10 GM PACKET PO SCH (10:39)
[2023-09-09] MEDS ORDERED: oxyCODONE HCL 5 MG TABLET PO PRN (14:36)
[2023-09-09] MEDS ORDERED: ACETAMINOPHEN 325 MG TABLET (FP) PO PRN (14:37)
[2023-09-09] MEDS ORDERED: PIPERACILLIN/TAZOB 2.25 GM 2.25 GM in DEXTROSE 5%-WATER - 50 ML IVPB SCH ×2 (15:00→16:00)
[2023-09-09 16:55] LABS: POTASSIUM 5.6 mmol/L (3.5-5.1)
[2023-09-09 16:57] LABS: ALBUMIN 3.1 g/dl (3.4-5.0); BLOOD UREA NITROGEN 64.6 mg/dL (7-18); CALCIUM 9.3 mg/dL (8.5-10.1)
[2023-09-09 17:00] LABS: CREATININE 3.3 mg/dL (0.55-1.3)
[2023-09-09 17:02] LABS: BILIRUBIN,TOTAL 0.2 mg/dL (0.2-1); TOT PROT 8.2 g/dl (6.4-8.2)
[2023-09-09] MEDS: CEFTRIAXONE 1 GM in DEXTROSE 5%-WATER - 50 ML IVPB SCH (20:09)
[2023-09-09] MEDS ORDERED: SODIUM CHLORIDE 0.45% 1,000 ML IV SCH (21:00)
[2023-09-09] MEDS: LACOSAMIDE 50 MG TABLET PO SCH (21:53)
[2023-09-09] MEDS: levETIRAcetam 250 MG TABLET PO SCH (21:53)
[2023-09-09] MEDS: HEPARIN NA (PORCINE) 5,000 UNITS/ML 1ML VIAL SQ SCH (21:53)
[2023-09-09] MEDS ORDERED: OLANZapine 10 MG TABLET PO SCH (22:00)
[2023-09-09] MEDS ORDERED: ROSUVASTATIN CA 5 MG TABLET PO SCH (22:00)
[2023-09-09] MEDS: INSULIN ASPART SLIDING SCALE (NOVOLOG) 1 VIAL SQ SCH (22:08)
[2023-09-09] MEDS: DIVALPROEX SODIUM 500 MG TABLET E.C. PO SCH (22:35)
[2023-09-09 23:20] LABS: EPI CELLS 33 /uL (0-25.1); HYALINE CASTS 0 /uL (0-3.1); PH,URINE 6.5 (5.0-8.0); URINE APPEARANCE CLEAR; URINE BACTERIA 14 /uL (0-1359); URINE BILIRUBIN NEGATIVE (NEGATIVE); URINE COLOR YELLOW; URINE GLUCOSE (UA) TRACE (NEGATIVE); URINE KETONE NEGATIVE (NEGATIVE); URINE LEUK ESTERASE 2+ (NEGATIVE); URINE NITRITE NEGATIVE (NEGATIVE); URINE PROTEIN 3+ (NEGATIVE); URINE RBC 123 /uL (0-23.9); URINE UROBILINOGEN 0.2 mg/dL (0.2-1.0); URINE WBC 306 /uL (0-25.8)
[2023-09-10] MEDS: INSULIN ASPART SLIDING SCALE (NOVOLOG) 1 VIAL SQ SCH ×4 (06:17→22:10)
[2023-09-10] MEDS ORDERED: TAMSULOSIN HCL 0.4 MG CAP PO SCH (08:30)
[2023-09-10] MEDS: LACOSAMIDE 50 MG TABLET PO SCH ×2 (10:00→22:05)
[2023-09-10] MEDS ORDERED: METOPROLOL TARTRATE 25 MG TABLET (FP) PO SCH (10:00)
[2023-09-10] MEDS: levETIRAcetam 250 MG TABLET PO SCH ×2 (10:00→22:05)
[2023-09-10] MEDS: HEPARIN NA (PORCINE) 5,000 UNITS/ML 1ML VIAL SQ SCH ×2 (10:00→22:05)
[2023-09-10] MEDS ORDERED: LOSARTAN POTASSIUM 50 MG TABLET PO SCH (10:00)
[2023-09-10] MEDS: SODIUM ZIRCONIUM CYCLOSILICATE (LOKELMA) 10 GM PACKET PO SCH (10:00)
[2023-09-10] MEDS ORDERED: amLODIPine BESYLATE 10 MG TABLET (FP) PO SCH (10:00)
[2023-09-10] MEDS ORDERED: DOCUSATE SODIUM 100 MG CAPSULE (FP) PO SCH (10:00)
[2023-09-10] MEDS: CEFTRIAXONE 1 GM in DEXTROSE 5%-WATER - 50 ML IVPB SCH (10:01)
[2023-09-10] MEDS: DIVALPROEX SODIUM 500 MG TABLET E.C. PO SCH ×2 (10:02→22:05)
[2023-09-10 10:25] LABS: BASO % 0.2 % (0-2.0); EOS % 1.6 % (0-4.5); HEMATOCRIT 35.3 % (35.4-49); HEMOGLOBIN 11.2 GM/dL (11.7-16.9); LYMPH % 47.8 % (8-40); MCH 27.8 pg (25.7-33.7); MCHC 31.9 g/dl (32.0-35.9); MEAN CELL VOLUME 87.2 fl (80-96); NEUT % 40.4 % (42.8-82.8); PLATELET COUNT 133 10^3/uL (134-434); RBC 4.04 M/mm3 (4.00-5.60); RDW 13.6 % (11.9-15.9); WHITE BLOOD COUNT 6.6 K/mm3 (4.0-10.0)
[2023-09-10 10:42] LABS: POTASSIUM 4.7 mmol/L (3.5-5.1)
[2023-09-10 10:51] LABS: ALBUMIN 2.9 g/dl (3.4-5.0); BLOOD UREA NITROGEN 53.4 mg/dL (7-18)
[2023-09-10 10:53] LABS: BILIRUBIN,TOTAL 0.2 mg/dL (0.2-1); CALCIUM 10.1 mg/dL (8.5-10.1); TOT PROT 7.9 g/dl (6.4-8.2)
[2023-09-10 10:54] LABS: CREATININE 2.9 mg/dL (0.55-1.3)
[2023-09-10] MEDS ORDERED: ONDANSETRON 4 MG/2 ML VIAL IVPUSH PRN ×2 (14:39→16:11)
[2023-09-10] MEDS ORDERED: PROMETHAZINE HCL 25 MG/1 ML VIAL IVPB PRN ×2 (14:39→16:11)
[2023-09-10] MEDS ORDERED: SODIUM CHLORIDE 1,000 ML IV SCH ×2 (14:45→16:11)
[2023-09-10] MEDS ORDERED: cefTRIAXone SODIUM 1 GM VIAL IVPB ONE (14:53)
[2023-09-10] MEDS ORDERED: DEXAMETHASONE SOD PHOSPHATE 4 MG/1 ML VIAL ONE (14:57)
[2023-09-10] MEDS ORDERED: LIDOCAINE HCL/PF 2% SDV 5ML VIAL ONE (14:57)
[2023-09-10] MEDS ORDERED: PROPOFOL 20 ML ONE (14:57)
[2023-09-10] MEDS ORDERED: ACETAMINOPHEN 325 MG TABLET (FP) PO PRN (16:11)
[2023-09-10] MEDS ORDERED: oxyCODONE HCL 5 MG TABLET PO PRN (16:11)
[2023-09-10] MEDS: SODIUM CHLORIDE 0.45% 1,000 ML IV SCH (17:00)
[2023-09-10] MEDS: OLANZapine 10 MG TABLET PO SCH (22:05)
[2023-09-10] MEDS: ROSUVASTATIN CA 5 MG TABLET PO SCH (22:05)
[2023-09-10 22:30] VITALS: RESP 18
[2023-09-11] MEDS: INSULIN ASPART SLIDING SCALE (NOVOLOG) 1 VIAL SQ SCH ×5 (06:50→22:00)
[2023-09-11] MEDS: TAMSULOSIN HCL 0.4 MG CAP PO SCH (08:51)
[2023-09-11] MEDS ORDERED: CEFTRIAXONE 1 GM in DEXTROSE 5%-WATER - 50 ML IVPB SCH (10:00)
[2023-09-11] MEDS ORDERED: METOPROLOL TARTRATE 25 MG TABLET (FP) PO SCH (10:00)
[2023-09-11 10:45] LABS: ALBUMIN 2.6 g/dl (3.4-5.0); BLOOD UREA NITROGEN 55.1 mg/dL (7-18); CALCIUM 8.8 mg/dL (8.5-10.1)
[2023-09-11] MEDS: LACOSAMIDE 50 MG TABLET PO SCH ×2 (10:46→21:48)
[2023-09-11] MEDS: levETIRAcetam 250 MG TABLET PO SCH ×2 (10:46→21:48)
[2023-09-11] MEDS: DOCUSATE SODIUM 100 MG CAPSULE (FP) PO SCH (10:47)
[2023-09-11 10:48] LABS: CREATININE 3.2 mg/dL (0.55-1.3)
[2023-09-11] MEDS: DIVALPROEX SODIUM 500 MG TABLET E.C. PO SCH ×2 (10:48→21:49)
[2023-09-11] MEDS: HEPARIN NA (PORCINE) 5,000 UNITS/ML 1ML VIAL SQ SCH ×3 (10:48→22:00)
[2023-09-11 10:50] LABS: BILIRUBIN,TOTAL 0.2 mg/dL (0.2-1); TOT PROT 7.7 g/dl (6.4-8.2)
[2023-09-11 15:41] LABS: N-TERMINAL BNP 442.2 pg/ml (5-125)
[2023-09-11] MEDS: OLANZapine 10 MG TABLET PO SCH (21:48)
[2023-09-11] MEDS: ROSUVASTATIN CA 5 MG TABLET PO SCH (21:48)
[2023-09-12] MEDS: INSULIN ASPART SLIDING SCALE (NOVOLOG) 1 VIAL SQ SCH ×3 (06:06→18:01)
[2023-09-12] MEDS: SODIUM CHLORIDE 0.45% 1,000 ML IV SCH (06:48)
[2023-09-12] MEDS: TAMSULOSIN HCL 0.4 MG CAP PO SCH (08:48)
[2023-09-12 10:39] LABS: BASO % 0.2 % (0-2.0); EOS % 0.4 % (0-4.5); HEMATOCRIT 28.5 % (35.4-49); HEMOGLOBIN 9.3 GM/dL (11.7-16.9); LYMPH % 37.1 % (8-40); MCH 28.5 pg (25.7-33.7); MCHC 32.6 g/dl (32.0-35.9); MEAN CELL VOLUME 87.3 fl (80-96); MEAN PLT VOLUME 8.2 fl (7.5-11.1); MONO % 13.3 % (3.8-10.2); PLATELET COUNT 120 10^3/uL (134-434); RBC 3.27 M/mm3 (4.00-5.60); RDW 13.9 % (11.9-15.9); WHITE BLOOD COUNT 7.6 K/mm3 (4.0-10.0)
[2023-09-12 10:41] LABS: POTASSIUM 4.2 mmol/L (3.5-5.1)
[2023-09-12 10:45] LABS: ALBUMIN 2.4 g/dl (3.4-5.0); BLOOD UREA NITROGEN 52.2 mg/dL (7-18)
[2023-09-12 10:47] LABS: CREATININE 3.1 mg/dL (0.55-1.3)
[2023-09-12 10:49] LABS: BILIRUBIN,TOTAL 0.1 mg/dL (0.2-1); TOT PROT 6.9 g/dl (6.4-8.2)
[2023-09-12] MEDS: levETIRAcetam 250 MG TABLET PO SCH (12:18)
[2023-09-12] MEDS: DIVALPROEX SODIUM 500 MG TABLET E.C. PO SCH (12:19)
[2023-09-12] MEDS: DOCUSATE SODIUM 100 MG CAPSULE (FP) PO SCH (12:19)
[2023-09-12] MEDS: HEPARIN NA (PORCINE) 5,000 UNITS/ML 1ML VIAL SQ SCH (12:19)
[2023-09-12] MEDS: LACOSAMIDE 50 MG TABLET PO SCH (12:19)
[2023-09-12 14:56] VITALS: BP 135/97; PULSE 93
[2023-09-12 15:02] VITALS: TEMP 99.7
[2023-09-13] MEDS ORDERED: metoPROLOL SUCCINATE 25 MG TAB.SR.24H (FP) PO SCH (10:00)
== END 2023-09-12 18:45 | DRG 671 ==
LOC: JER 01:49 → JERBED 02:39 → J6S 12:17
PROVIDERS: ADMIT Internal Medicine; ATTEND Internal Medicine
PROC: 0T9B80Z Drainage of Bladder with Drainage Device, Via Natural or Artificial Opening Endoscopic (ICD-10-PCS; 2023-09-10)
PROC: 0T7D0ZZ Dilation of Urethra, Open Approach (ICD-10-PCS; principal; 2023-09-10 14:30)
DX: N35.813 Other membranous urethral stricture, male (principal); N17.9 Acute kidney failure, unspecified; N45.3 Epididymo-orchitis; K21.9 Gastro-esophageal reflux disease without esophagitis; F20.9 Schizophrenia, unspecified; G40.909 Epilepsy, unspecified, not intractable, without status epilepticus; E78.5 Hyperlipidemia, unspecified; F31.9 Bipolar disorder, unspecified; G20.A1 Parkinson's disease without dyskinesia, without mention of fluctuations; D64.9 Anemia, unspecified; N31.9 Neuromuscular dysfunction of bladder, unspecified; E11.65 Type 2 diabetes mellitus with hyperglycemia; R33.9 Retention of urine, unspecified; E87.5 Hyperkalemia; N50.89 Other specified disorders of the male genital organs; I12.9 Hypertensive chronic kidney disease with stage 1 through stage 4 chronic kidney disease, or unspecified chronic kidney disease; E11.22 Type 2 diabetes mellitus with diabetic chronic kidney disease; N18.9 Chronic kidney disease, unspecified
CPT/HCPCS: 36415; 71045-TC-FY; 74176-TC; 76775-TC; 76870-TC; 80053; 80061; 81003; 82105; 82962; 83036; 83605; 83615; 83880; 84443; 85025; 85610; 85730; 86850; 86900; 86901; 87040; 87086; 87635; 93005; 93010; 94760; 99285-25; C1769; J1644